=== PATIENT | female | born 1965 | race Caucasian/White ===

== ENCOUNTER 2019-10-06 11:35 | Emergency (ER) | payer MEDICAID ==
[~2019-10-06] VITALS: Ht 152.4 cm; Wt 63.5 kg
[2019-10-06 11:35] VITALS: BP 180/102
--- NOTE | 2019-10-06 11:35 | NUR ---
Patient [facility] accompanied by Kandi JOHNSON, triaged by RN. Waiting for an available bed.
--- NOTE | 2019-10-06 11:53 | NUR ---
PT MOVED TO BED 4.
--- NOTE | 2019-10-06 12:10 | NUR ---
53/F BIBA ACCOMPANIED BY MAHNAZ JOHNSON FOR ETOH. PT WAS PULLED OVER AND IDENTIFIED BY PD DRIVING UNDER THE INFLUENCE, PT WAS ALTERED FOR OFFICERS, AND STUMBLED INTO BUSHES. PT DENIES ANY INJURY. DENIES ANY DISCOMFORT OR PAIN. NO N/V AT THIS TIME. PT REQUESTING FOR "ALIA". HX: HTN
--- NOTE | 2019-10-06 12:30 | NUR ---
DR. AYALA EVALUATING PT AT BEDSIDE. SPEAKING W/ PD.
--- NOTE | 2019-10-06 12:46 | NUR ---
LABEL MAKER HERE TO TAKE PT TO CT SCAN VIA [facility]
--- NOTE | 2019-10-06 12:53 | NUR ---
[facility] [address] [facility]
--- NOTE | 2019-10-06 14:22 | NUR ---
PT RESTING IN [facility], SCROLLING THROUGH CELL PHONE
--- NOTE | 2019-10-06 14:39 | NUR ---
PT AMB TO BATHROOM STEADY GAIT
[2019-10-06 14:50] VITALS: BP 145/80
--- NOTE | 2019-10-06 14:50 | NUR ---
IV removed, catheter intact and site benign. Applied folded 4x4 gauze and tape to stop bleeding.
--- NOTE | 2019-10-06 14:50 | NUR ---
Patient discharged with v/s stable. Written and verbal after care instructions given and explained. Patient verbalized understanding. Ambulatory with steady gait. All questions addressed prior to discharge. Advised to follow up with PMD.
== END 2019-10-06 14:50 | disposition home or self-care (01) ==
LOC: MED 11:35
DX: F10.121 Alcohol abuse with intoxication delirium (principal); F14.10 Cocaine abuse, uncomplicated; G92 Toxic encephalopathy
CPT/HCPCS: 70450; 99284